=== PATIENT | male | born 1950 | race Caucasian/White ===

== ENCOUNTER 2017-07-01 12:42 | Emergency (ER) | payer OTHER, MEDICAID ==
[2017-07-01 12:51] VITALS: BP 111/92; PULSE 124; RESP 20; TEMP 97.7; O2SAT 92
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
== END 2017-07-01 13:32 | disposition home or self-care (01) ==
DX: S16.1XXA Strain of muscle, fascia and tendon at neck level, initial encounter (principal); F17.200 Nicotine dependence, unspecified, uncomplicated; V89.2XXA Person injured in unspecified motor-vehicle accident, traffic, initial encounter; Y92.410 Unspecified street and highway as the place of occurrence of the external cause; Y99.8 Other external cause status; Y93.89 Activity, other specified

== ENCOUNTER 2017-08-21 16:55 | Emergency (ER) | payer OTHER, MEDICAID ==
--- NOTE | 2017-08-21 18:06 | EDPHY ---
H & P Stated Complaint: "Mental health crisis" for months;family wants eval and tx - Personal History Current Tetanus Diphtheria and Acellular Pertussis (TDAP): Yes - Medical/Surgical History Hx Asthma: No Hx Chronic Respiratory Disease: No Hx Diabetes: No Hx Cardiac Disease: No Hx Renal Disease: No Hx Cirrhosis: No Hx Alcoholism: No Hx HIV/AIDS: No Hx Splenectomy or Spleen Trauma: No Other PMH: Umbilical hernia repair . Knee surgery. right ankle bone spur. tonsils. PS - Social History Smoking Status: Current every day smoker Time Seen by Provider: 08/21/17 18:05 Constitutional: Initial Vital Signs Temperature (C) 37 C 08/21/17 17:06 Heart Rate 104 H 08/21/17 17:06 Respiratory Rate 18 08/21/17 17:06 Blood Pressure 128/83 H 08/21/17 17:06 O2 Sat (%) 92 08/21/17 17:06 O2 Delivery Mode Room Air O2 (L/minute) 2 Allergies/Adverse Reactions: No Known Allergies Allergy (Verified 08/21/17 17:06) Home Medications: Medication Instructions Recorded Albuterol Sulfate [Proventil Hfa] 6.7 gm IH 08/21/17 Atorvastatin Calcium [Lipitor 40 40 mg PO 08/21/17 mg (*)] lamoTRIgine [LamICTAL 100 MG (*)] 100 mg PO 08/21/17 Medical Decision Making ED Course/Re-evaluation: CHIEF COMPLAINT: Psychiatric evaluation, martir, depression HISTORY OF PRESENT ILLNESS: The patient is a 67 y/o male with manic depressive bipolar disorder arriving with his family for mental health evaluation. His son provides the majority of the history and tells me he has"serious depression and is taking it out on others. He's completely alienated all of us." His son describes him "feeling like a vernon" and giving away all of his stuff like his car. He is living with his son currently and is taking Lamictal only, but has had a rash recently that he thinks is from his Lamictal. He has refused other medications because he believes he is feeling pretty well. This has been going on for several weeks. He tells me, "I'm just tired." No recent illness, trauma. REVIEW OF SYSTEMS: A 10 point review of systems was performed and is negative with the exception of the elements mentioned in the history of present illness. PHYSICAL EXAM: General Appearance: Alert, well hydrated, appropriate, and non-toxic appearing. Head: Atraumatic without scalp tenderness or obvious injury Eyes: Pupils equal, round, reactive to light and accommodation, EOMI, no trauma , no injection. Nose: Atraumatic, no rhinorrhea, clear. Throat: There is no erythema or exudates, no lesions, normal tonsils, mucus membranes moist. Neck: Supple, nontender, no lymphadenopathy. Respiratory: No retractions, no distress, no wheezes, and no accessory muscle use. Lungs are clear to auscultation bilaterally. Cardiovascular: Regular rate and rhythm, no murmurs, rubs, or gallops. Good capillary refill all extremities. Gastrointestinal: Abdomen is soft, nontender, non-distended, no masses, no rebound, no guarding, no peritoneal signs. Musculoskeletal: Normal active ROM of all extremities, atraumatic. Neurological: Alert, appropriate, and interactive. The patient has non-focal cranial nerves, motor, sensory, and cerebellar exam. Skin: Good turgor, no nodules on palpation. Diffuse macular rash consistent with Lamictal rash. Past medical history: Manic depression bipolar disorder Past surgical history: Ortho Family history: Noncontributory Social history: Family at bedside DIFFERENTIAL DIAGNOSIS: The differential diagnosis for the patient's depression included but was not limited to functional and major depression, situational depression, medication side effect, drugs, and alcohol abuse. MEDICAL DECISION MAKIN67 y/o male presents with several weeks of martir. Patient is in no acute distress and is hemodynamically stable. Consents to medication and evaluation. 10mg PO Zyprexa ordered. We are awaiting psychiatric team's evaluation. Patient has known history of psychiatric disorders and is here for evaluation. ( Carter Shah) EKG interpretation by me on record in [facility] system. Impression time of EKG 2:06 a.m., this is sinus rhythm rate of 87 no acute ischemic abnormality. Unremarkable EKG. This EKG was performed for medical clearance for inpatient psychiatric hospitalization. 0448: Patient been accepted at [email or web address]. EMTALA filled out. Appropriate transfer Set up. Accepted by Dr. Hayes. (Damian Kinsey) Other Provider: I assumed care of this patient from Dr. Shah at 9:00 p.m.. Patient is sleeping. He received Zyprexa earlier. He is here with his family. He has been quite manic. We are awaiting placement. Patient's care was assumed at 11: [address] Damian Kinsey. (Lucia Chen) - Data Points Laboratory Results: Laboratory Results 08/21/17 18:37 08/21/17 18:37 08/21/17 08/21/17 08/21/17 18:43 18:37 18:37 WBC 11.65 10^3/uL H 10^3/uL (3.80-9.50) RBC 5.64 10^6/uL 10^6/uL (4.40-6.38) Hgb 17.7 g/dL H g/dL (13.7-17.5) Hct 51.1 % H % (40.0-51.0) MCV 90.6 fL fL (81.5-99.8) MCH 31.4 pg pg (27.9-34.1) MCHC 34.6 g/dL g/dL (32.4-36.7) RDW 12.5 % % (11.5-15.2) Plt Count 393 10^3/uL 10^3/uL (150-400) MPV 9.3 fL fL (8.7-11.7) Neut % (Auto) 60.6 % % (39.3-74.2) Lymph % (Auto) 28.2 % % (15.0-45.0) [place] % (Auto) 7.7 % % (4.5-13.0) Eos % (Auto) 2.5 % % (0.6-7.6) Baso % (Auto) 0.8 % % (0.3-1.7) Nucleat RBC Rel Count 0.0 % % (0.0-0.2) Absolute Neuts (auto) 7.06 10^3/uL H 10^3/uL (1.70-6.50) Absolute Lymphs (auto) 3.29 10^3/uL H 10^3/uL (1.00-3.00) Absolute Monos (auto) 0.90 10^3/uL H 10^3/uL (0.30-0.80) Absolute Eos (auto) 0.29 10^3/uL 10^3/uL (0.03-0.40) Absolute Basos (auto) 0.09 10^3/uL 10^3/uL (0.02-0.10) Absolute Nucleated RBC 0.00 10^3/uL 10^3/uL (0-0.01) Immature Gran % 0.2 % % (0.0-1.1) Immature Gran # 0.02 10^3/uL 10^3/uL (0.00-0.10) Sodium 135 mEq/L mEq/L (135-145) Potassium 4.4 mEq/L mEq/L (3.5-5.2) Chloride 99 mEq/L mEq/L (97-110) Carbon Dioxide 22 mEq/l mEq/l (22-31) Anion Gap 14 mEq/L mEq/L (8-16) BUN 15 mg/dL mg/dL (7-23) Creatinine 1.1 mg/dL mg/dL (0.7-1.3) Estimated GFR > 60 Glucose 91 mg/dL mg/dL (70-100) Calcium 9.7 mg/dL mg/dL (8.5-10.4) Salicylates < 1.0 mg/dL L mg/dL (2.0-20.0) Urine Opiates Screen NEGATIVE (NEGATIVE) Acetaminophen < 10 mcg/mL L mcg/mL (10-30) Urine Barbiturates NEGATIVE (NEGATIVE) Ur Phencyclidine Scrn NEGATIVE (NEGATIVE) Ur Amphetamine Screen NEGATIVE (NEGATIVE) U Benzodiazepines Scrn NEGATIVE (NEGATIVE) Urine Cocaine Screen NEGATIVE (NEGATIVE) U Marijuana (THC) Screen NEGATIVE (NEGATIVE) Ethyl Alcohol < 10 mg/dL mg/dL (0-10) Medications Given: Discontinued Medications Ibuprofen (Motrin) 600 mg PO EDNOW ONE Stop: 08/22/17 02:45 Last Admin: 08/22/17 02:47 Dose: 600 mg Olanzapine (Zyprexa Zydis) 10 mg PO EDNOW ONE Stop: 08/21/17 18:42 Last Admin: 08/21/17 18:41 Dose: 10 mg Departure - Departure Disposition: Other Psych, Not [place] Clinical Impression: Bipolar disorder with severe martir, Drug rash Condition: Fair Referrals: [facility],. [Primary Care Provider] - As per Instructions Report Scribed for: Carter Shah Report Scribed by: Anjelica Howard Date of Report: 08/21/17 Time of Report: 18:40
[2017-08-21] MEDS ORDERED: OLANZapine DISINTEGR 10 MG TAB ONE (18:40)
[2017-08-21] MEDS ORDERED: OLANZapine DISINTEGR 10 MG TAB PO ONE (18:41)
[2017-08-21 19:07] LABS: PLATELET COUNT 393 10^3/uL (150-400)
[2017-08-21 22:45] VITALS: RESP 16
--- NOTE | 2017-08-22 02:09 | CPEKG ---
Heart Rate: 87 RR Interval: 690 P-R Interval: 168 QRSD Interval: 94 QT Interval: 388 QTC Interval: 467 P Hague: 43 QRS Hague: 0 T Wave Hague: 8 EKG Severity - NORMAL ECG - EKG Impression: SINUS RHYTHM Electronically Signed By: Damian Kinsey 22-Aug-2017 07:20:18
[2017-08-22] MEDS ORDERED: IBUPROFEN 600 MG TAB PO ONE (02:44)
[2017-08-22 04:12] VITALS: BP 100/62; PULSE 68; TEMP 98.6; O2SAT 92
== END 2017-08-22 04:48 ==
DX: F31.9 Bipolar disorder, unspecified (principal); L27.0 Generalized skin eruption due to drugs and medicaments taken internally; T42.6X5A Adverse effect of other antiepileptic and sedative-hypnotic drugs, initial encounter; F17.200 Nicotine dependence, unspecified, uncomplicated
CPT/HCPCS: 80305; G0480

== ENCOUNTER 2018-04-07 22:35 | Emergency (ER) | payer OTHER, MEDICAID ==
[2018-04-07] MEDS ORDERED: OLANZapine DISINTEGR 10 MG TAB PO ONE (23:11)
[2018-04-07 23:37] LABS: PLATELET COUNT 475 10^3/uL (150-400)
[2018-04-07] MEDS ORDERED: OLANZapine DISINTEGR 10 MG TAB ONE (23:59)
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
[2018-04-08] MEDS ORDERED: LORazepam 1 MG TAB ONE (00:56)
[2018-04-08] MEDS ORDERED: LORazepam 1 MG TAB PO ONE (00:57)
[2018-04-08] MEDS ORDERED: LORazepam 2 MG/ML INJ ONE (10:03)
[2018-04-08] MEDS ORDERED: LORazepam 2 MG/ML INJ IVP ONE (10:05)
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
[2018-04-08] MEDS ORDERED: OLANZapine DISINTEGR 5 MG TAB PO ONE (12:59)
--- NOTE | 2018-04-08 13:37 | ASMTTCLDSP ---
TLC Discharge Disposition Disposition: Answers: Transfer Disposition Notes: Notes: Pt's daughter has requested that a hospital with a geriatric unit be sought. She believes her father will focus more on himself if he doesn't have a group of young people "to impress". The clinician agreed to this acknowledging that if this could not be found referrals would be made to other hospitals. Discharge Concerns/Recommendations: Notes: In consultation with [facility] ED physician, Laurie Camacho MD it was concurred that Pt appears to meet 27-65 criteria requiring psychiatric hospitalization as Pt appears to be at risk due to grave disability due to a mental illness condition. Was patient given the Answers: Not applicable [facility] Prohibited Belongings List while in the ED? Type of Hold: Answers: M1/72-hour Hold Hold initiated by: Answers: ED Physician For Transfers, Accepting [facility] Facility: For Transfers, Reason Request for geriatric unit Patient is Being Transferred: Date Signed: 04/08/2018 01:36 PM Electronically Signed By:Kendy Anthony
[2018-04-08] MEDS ORDERED: OLANZapine DISINTEGR 5 MG TAB ONE (13:53)
[2018-04-08 14:57] VITALS: BP 144/78
== END 2018-04-08 14:59 | disposition still patient (30) ==
LOC: EEVIPCON 22:35
DX: F31.2 Bipolar disorder, current episode manic severe with psychotic features (principal); F17.200 Nicotine dependence, unspecified, uncomplicated
CPT/HCPCS: 90791; 96374; 99285; J2060; 80305; G0480

== ENCOUNTER 2018-06-20 05:41 | Day surgery (SDC) | payer OTHER, MEDICAID ==
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
[2018-06-20] MEDS ORDERED: LIDOCAINE 1% 2 ML INJ ID PRN (06:07)
[2018-06-20] MEDS ORDERED: LR 1,000 ML IV ONE (06:07)
[2018-06-20] MEDS ORDERED: ceFAZolin 2 GM/DEXTROSE 100 ML IV ONE (06:45)
[2018-06-20] MEDS ORDERED: fentaNYL 100 MCG/2 ML INJ ONE (06:46)
[2018-06-20] MEDS ORDERED: MIDAZOLAM 2 MG/2 ML VIAL ONE (06:46)
[2018-06-20] MEDS ORDERED: ROPIVACAINE HCL 150 MG/30 ML INJ ONE (06:47)
[2018-06-20] MEDS ORDERED: PROPOFOL 200 MG/20 ML VIAL ONE (06:47)
[2018-06-20] MEDS ORDERED: LIDOCAINE 2% 5 ML SDV ONE (06:47)
[2018-06-20] MEDS ORDERED: ROCURONIUM 50 MG/5 ML VIAL ONE (06:47)
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
--- NOTE | 2018-06-20 06:49 | PDHPUP ---
History & Physical Update H&P update statement: This history and physical update is based on an assessment of the patient which was completed after admission or registration (within 24 hours), but prior to the surgery/procedure. H&P update: H&P reviewed & patient examined, no change in patient's condition since H&P completed
[2018-06-20] MEDS ORDERED: LIDOCAINE 1% 300 MG/30 ML SDV ONE (06:52)
[2018-06-20] MEDS ORDERED: LIDO/EPI 1% **for epidural** 30 ML SDV ONE (06:53)
[2018-06-20] MEDS ORDERED: EPINEPHrine 1 MG/ML INJ ONE (06:53)
[2018-06-20] MEDS ORDERED: BUPIVACAINE 0.5% 30 ML SDV ONE (06:53)
[2018-06-20] MEDS ORDERED: ePHEDrine SULFATE 25 MG/5 ML SYR ONE ×2 (07:34→07:57)
[2018-06-20] MEDS ORDERED: ONDANSETRON 4 MG/2 ML VIAL ONE (07:51)
[2018-06-20] MEDS ORDERED: DEXAMETHASONE 4 MG/ML VIAL ONE (07:51)
[2018-06-20] MEDS ORDERED: PHENYLEPHRINE HCL 100 MCG/ML SYR ONE (08:03)
[2018-06-20] MEDS ORDERED: MEPERIDINE 25 MG/0.5 ML AMP IVP PRN (08:20)
[2018-06-20] MEDS ORDERED: PROMETHAZINE HCL 25 MG/ML INJ IVP PRN (08:20)
[2018-06-20] MEDS ORDERED: fentaNYL 100 MCG/2 ML INJ IVP PRN (08:20)
[2018-06-20] MEDS ORDERED: NALOXONE HCL 0.4 MG/ML INJ IVP PRN (08:20)
[2018-06-20] MEDS ORDERED: HYDROmorphONE/DILAUDID 2 MG/ML INJ IVP PRN (08:20)
[2018-06-20] MEDS ORDERED: ALBUTEROL 3 ML DEYVIAL IH PRN (08:20)
--- NOTE | 2018-06-20 08:24 | POSTANESTH ---
Post Anesthetic Evaluation Cardiovascular Status: Normal, Stable Respiratory Status: Similar to Pre-op Cond. Level of Consciousness/Mental Status: Can Participate in Eval, Moderately Sleepy Pain Control: Adequate, Prn Tx Ordered Nausea/Vomiting Control: Adequate, Prn Tx Ordered Complications Possibly Related to Anesthesia: None Noted
--- NOTE | 2018-06-20 10:28 | PDHOMEO2F ---
Home Oxygen Face to Face Home Orders: I certify that a physician or a nurse practitioner or physician's child care assistant has had a [id number] encounter with this patient on the date of this order due to the diagnosis listed, which relates to the primary reason the patient requires home oxygen. Alternative treatments have been tried, or considered, and deemed ineffective. It is anticipated that supplemental oxygen will result in improvement with treatment. Home oxygen qualifying diagnosis: hypoxia SpO2 on room air (%): 85% Frequency of home oxygen needed: with activity Home oxygen liters per minute: 3L Home oxygen delivery device: nasal cannula Concentrator: Yes E-tanks for mobility and back up: Yes If ordering portable O2, is the patient mobile in the home?: Yes I certify that, based on these findings, the home oxygen is medically necessary for this patient for the following length of time. Length of time home oxygen needed: 1 week
[2018-06-20] MEDS ORDERED: ALBUTEROL 3 ML DEYVIAL ONE (10:59)
[2018-06-20 14:27] VITALS: BP 107/57
--- NOTE | 2018-06-21 14:18 | GOP ---
PATIENT: BRAN LAWTON DATE OF SERVICE: 06/20/18 PATIENT DATE OF : 1950 SURGEON: Eulogio Vera M.D. MOTOR POLARIZER: Carina Mortensen PA-C Mrs. Reardon assistance was medically necessary for patient positioning and the retraction of vital structures. ANESTHESIA: General / regional anesthesia PRE-OPERATIVE DIAGNOSES: Right shoulder subacromial impingement (ICD-10 code M75.51 -- right shoulder bursitis) Right shoulder acromioclavicular joint arthritis (ICD-10 code M13.111 -- right shoulder acromioclavicular joint arthritis) Right shoulder SLAP tear (ICD-10 code S43.431D -- right shoulder superior glenoid labrum lesion) Right shoulder biceps tendinitis (ICD-10 code M75.21 -- right shoulder bicipital tendinitis) Right shoulder rotator cuff tear (ICD-10 code S46.001A -- right shoulder rotator cuff tear) POST-OPERATIVE DIAGNOSES: Right shoulder subacromial impingement (ICD-10 code M75.51 -- right shoulder bursitis) Right shoulder acromioclavicular joint arthritis (ICD-10 code M13.111 -- right shoulder acromioclavicular joint arthritis) Right shoulder SLAP tear (ICD-10 code S43.431D -- right shoulder superior glenoid labrum lesion) Right shoulder biceps tendinitis (ICD-10 code M75.21 -- right shoulder bicipital tendinitis) Right shoulder rotator cuff tear (ICD-10 code S46.001A -- right shoulder rotator cuff tear) OPERATIVE PROCEDURES: CPT code 22841 - Right shoulder arthroscopic subacromial decompression CPT code 20052 - Right shoulder arthroscopic debridement, extensive CPT code 88638 - Right shoulder arthroscopic distal clavicle excision CPT code 21561 - Right shoulder arthroscopic rotator cuff repair CPT code 62533 - Right shoulder long head of biceps tenotomy CPT code 89568 Right shoulder subpectoral biceps tenodesis EBL: 4cc COMPLICATIONS: None IMPLANTS: One Arthrex 5.5mm bio-composite corkscrew anchor triple loaded with # 2 Fiber Wire, one Arthrex 4.75 mm bio-composite swivel lock anchor, and one Arthrex proximal biceps tenodesis button with #2 Fiber Wire BRIEF CLINICAL NOTE: This is a very pleasant 68 year old male with a significant history for right shoulder subacromial impingement, acromioclavicular joint arthritis, degenerative labral tears, long head of biceps tendinitis and a rotator cuff tear. As such, I have discussed the risks , benefits, alternatives, and complications associated with both non-operative ( specifically, observation, PT, activity modifications, NSAIDs, injection) and operative (specifically, right shoulder arthroscopy with subacromial decompression, distal clavicle excision, labral debridement, long head of biceps tenotomy and/or tenodesis, and rotator cuff debridement and/or repair) forms of treatment. The patient fully understands the risks, benefits, alternatives, and complications associated with both forms of treatment and wishes to proceed with operative intervention as outlined above. The patient has signed the informed consent form for surgery. OPERATIVE NOTE: On the day of surgery, all of the patients questions were answered. The patient was then transferred from the pre-operative area into the operating room and a formal, Time-Out procedure was performed. The patient was identified by name, medical record number, social security number, and date of . In addition, the patients right upper extremity was identified as the correct portion of the patients body for surgery with the patients right shoulder being identified as the correct portion of that extremity for surgery. The anesthesia team administered pre-operative antibiotics for prophylaxis. The patient was then transferred to the operating room table and placed in the beach chair position while padding all bony prominences. The extremity was then prepped and draped in the normal sterile fashion. A sterile marking pen was then utilized to andrés out standard posterior, lateral , and anterior arthroscopic portal incisions. An 18-gauge spinal needle was utilized to localize the glenohumeral joint and the joint was insufflated with 60cc of a 50:50 mixture of 1% lidocaine with 1:200,000 components of epinephrine and normal saline. Following this, an 11-blade was utilized to make the posterior portal incision. The blunt obturator and arthroscopic cannula were then advanced through the posterior portal incision into the glenohumeral joint. The arthroscope was inserted and the shoulder was brought into external rotation. An 18-gauge spinal needle was utilized to create the anterior portal with outside-in technique. A medium-sized Arthrex corkscrew cannula was then inserted through the anterior portal incision. A diagnostic arthroscopy was performed in the glenohumeral space. The following structures were identified and examined with the following findings: Glenohumeral diagnostic arthroscopy Glenoid: mild degenerative changes Humeral head: mild degenerative changes Glenoid labrum Anterior labrum: degenerative fraying Superior labrum: degenerative fraying Posterior labrum: intact Inferior labrum: intact Biceps tendon: high-grade partial tearing Glenohumeral ligaments: SGHL: intact MGHL: intact AIGHL: intact PIGHL: intact Undersurface of rotator cuff: Subscapularis: intact Supraspinatus: high-grade undersurface tear Infraspinatus: intact The 4.0mm aggressive cutter was then inserted through the anterior portal and an extensive debridement was performed within the glenohumeral joint. The cautery wand was inserted through the anterior portal and the long head of the biceps tendon was released off of the supraglenoid tubercle (long head of biceps tenotomy). An 18-gauge spinal needle was then passed through the undersurface supraspinatus tear with outside-in technique and a 3-0 prolene suture was then inserted to andrés the tear. The 18-gauge spinal needle was then removed leaving the prolene suture in place. The arthroscope was then removed from the glenohumeral joint and the posterior cannula was re-directed into the subacromial space. The arthroscope was then re -inserted into the posterior cannula. An 18-gauge spinal needle was used to create a straight lateral portal with outside-in technique. A large Arthrex corkscrew cannula was inserted through the lateral portal incision. The 4.0mm aggressive cutter and the cautery wand were passed through the lateral portal to excise the subacromial-subdeltoid bursa. A diagnostic arthroscopy was performed in the subacromial space. The following structures were identified and examined with the following findings: Subacromial space diagnostic arthroscopy Subacromial / subdeltoid bursa: hypertrophic and inflamed Acromion: undersurface spurring Coracoacromial ligament: intact Acromioclavicular joint: arthritis and undersurface spurring Bursal surface of rotator cuff muscles: Supraspinatus: intact Infraspinatus: intact The 4.0mm barrel yoel was utilized to perform both an acromioplasty as well as an arthroscopic distal clavicle excision. The torn portion of the supraspinatus was then identified by the 3-0 prolene suture. The torn portion of the rotator cuff was debrided with a 4.0mm cutter. The rotator cuff footprint at the tear site was also debrided with both the aggressive cutter and the 4.0mm barrel yoel. The medial row anchor site was localized with outside-in technique utilizing an 18-gauge spinal needle. A 2-mm incision was made overlying anterior medial row anchor site and the 5.5mm punch was advanced through the soft tissue and impacted into the bone of the greater tuberosity. The punch was removed and an Arthrex 5.5mm bio-composite corkscrew anchor (triple loaded with #2 Fiber Wire) was inserted and manually checked for pull-out strength. The suture strands from the medial row anchor were then passed through the torn edge of the rotator cuff moving from anterior to posterior. Each suture pair was then sequentially tightened and tied moving from anterior to posterior. All of the suture strands were then shuttled out of the lateral portal and passed through the tip of an Arthrex 4.75mm bio-composite Swivel Lock anchor. The 5.5mm punch was then utilized to create a fixed wing pilot hole for the anchor along the lateral aspect of the anterior greater tuberosity. The Swivel Lock anchor tip was then inserted into the fixed wing pilot hole and each suture strand was sequentially tightened. The Swivel lock anchor was then fully inserted. The central suture strand was removed from the anchor and the remaining suture strands were cut. The arm was brought through internal rotation, external rotation, adduction and abduction. All motions demonstrated an excellent repair of the cuff to the footprint. Meticulous hemostasis was obtained in the subacromial space with the cautery wand. Arthroscopic pictures were taken and saved. The arthroscope and all instruments were then removed from the joint and attention was turned to the left proximal arm. A sterile marking pen was utilized to andrés out a 2cm longitudinal incision along the inferior border of the pectoralis major tendon in-line with the bicipital groove. A #15 blade was then used to incise the skin and meticulous hemostasis was obtained in the subcutaneous plane with bovie cautery. Blunt dissection was then performed to expose the long head of the biceps tendon. The tendon was then pulled out through the incision and shortened with straight tenotomy scissors. A #2 Fiber Wire suture was then passed through the tendon in a running and locking fashion with both tails exiting distally. The 3.2mm drill pin was then used to drill a bi-cortical tunnel through the proximal humerus. The two Fiberwire tails which had been threaded through the biceps tendon were then passed through the biceps button and the biceps button was inserted into the hole in the humerus. The button was flipped on the far side of the far cortex. The Firber Wire tails were then tightened to reduce the biceps tendon to the anterior surface of the humerus. The tails were then threaded through the biceps tendon one more time with a free needle and tied to each other. All wounds were copiously irrigated with sterile normal saline. The subcutaneous plane was re-approximated with 3-0 vicryl sutures and the skin was re-approximated with 4-0 moncryl. The skin was cleaned with sterile normal saline and dried. Dermabond was applied to all of the incisions followed by a Xeroform gauze dressing, a dry sterile dressing, and an occlusive Tegaderm dressing. The arm was then placed into a sling and swathe. The patient was reversed from anesthesia and transferred from the operating room table onto the post-operative gurney and transferred from the operating room to the PACU in stable condition. POST-OPERATIVE PLAN: The patient will remain in the current dressing and sling for the next 2 weeks. The patient will follow-up in 2 weeks for a wound check and initiation of gentle forearm, elbow, and shoulder ROM exercises. /[id number]/MODL MTDD
== END 2018-06-20 15:20 | disposition home or self-care (01) ==
LOC: FSGY 05:41
PROVIDERS: ATTEND Orthopaedic Surgery Hand Surgery
PROC: 0RNJ4ZZ Release Right Shoulder Joint, Percutaneous Endoscopic Approach (ICD-10-PCS; 2018-06-20)
PROC: 0PB94ZZ Excision of Right Clavicle, Percutaneous Endoscopic Approach (ICD-10-PCS; 2018-06-20)
PROC: 0LS10ZZ Reposition Right Shoulder Tendon, Open Approach (ICD-10-PCS; principal; 2018-06-20 07:15)
PROC: 0LQ14ZZ Repair Right Shoulder Tendon, Percutaneous Endoscopic Approach (ICD-10-PCS; 2018-06-20 07:15)
DX: M75.101 Unspecified rotator cuff tear or rupture of right shoulder, not specified as traumatic (principal); M75.41 Impingement syndrome of right shoulder; S46.211A Strain of muscle, fascia and tendon of other parts of biceps, right arm, initial encounter; M75.21 Bicipital tendinitis, right shoulder; M25.811 Other specified joint disorders, right shoulder; M75.51 Bursitis of right shoulder; M19.011 Primary osteoarthritis, right shoulder; J45.990 Exercise induced bronchospasm; E66.9 Obesity, unspecified; F17.210 Nicotine dependence, cigarettes, uncomplicated; Z79.899 Other long term (current) drug therapy; V89.2XXA Person injured in unspecified motor-vehicle accident, traffic, initial encounter
CPT/HCPCS: C1713; J0171; J0690; J1100; J2250; J2370; J2405; J2704; J2795; J3010; J7613